=== PATIENT | male | born 1995 | race Two or more races ===

== ENCOUNTER 2024-03-11 09:31 | Emergency (ER) | payer OTHER ==
[~2024-03-11] VITALS: Ht 172.7 cm; Wt 76.2 kg
[2024-03-11] MEDS ORDERED: MEDROLPACK PO (10:07)
[2024-03-11] MEDS ORDERED: METHYLPREDNISOLONE SOD SUCC 40 MG VIAL IM ONE (10:15)
== END 2024-03-11 10:29 | disposition home or self-care (01) ==
LOC: ER 09:33
DX: M25.50 Pain in unspecified joint (principal)

== ENCOUNTER 2024-03-22 00:27 | Emergency (ER) | payer OTHER ==
[~2024-03-22] VITALS: Ht 172.7 cm; Wt 77.1 kg
[~2024-03-22 00:27] MED LIST: MEDROLPACK PO
[2024-03-22] MEDS ORDERED: DIPHENHYDRAMINE HCL 50 MG/ML VIAL 1ML IV STA (02:11)
[2024-03-22] MEDS ORDERED: METHYLPREDNISOLONE SOD SUCC 125 MG VIAL IV STA (02:12)
[2024-03-22] MEDS ORDERED: BENADRYL25 MG PO (04:36)
[2024-03-22] MEDS ORDERED: PEPCID40 MG PO (04:36)
[2024-03-22] MEDS ORDERED: MEDROL8 MG PO (04:36)
== END 2024-03-22 04:42 ==
LOC: ER 00:29
DX: R53.81 Other malaise (principal); Z87.898 Personal history of other specified conditions; L50.9 Urticaria, unspecified